=== PATIENT | female | born 1990 | race Caucasian/White ===

== ENCOUNTER 2017-07-27 10:48 | Emergency (ER) | payer SELFPAY ==
[~2017-07-27] VITALS: Ht 162.6 cm; Wt 68.0 kg
[2017-07-27] MEDS ORDERED: HYDROCODONE/ACETAMINOPHEN 5/325MG TABLET PO ONE (11:30)
[2017-07-27 11:51] VITALS: BP 131/86
== END 2017-07-27 12:30 | disposition home or self-care (01) ==
LOC: ER 12:16
DX: K08.89 Other specified disorders of teeth and supporting structures (principal); Z88.6 Allergy status to analgesic agent
CPT/HCPCS: 99283

== ENCOUNTER 2017-08-30 09:24 | Emergency (ER) | payer SELFPAY ==
[~2017-08-30] VITALS: Ht 162.6 cm; Wt 68.0 kg
[2017-08-30 09:54] VITALS: BP 110/83
== END 2017-08-30 19:30 | disposition left against medical advice (07) ==
LOC: ER 10:09
DX: R10.9 Unspecified abdominal pain (principal); Z53.21 Procedure and treatment not carried out due to patient leaving prior to being seen by health care provider